=== PATIENT | male | born 1960 | race Caucasian/White ===

== ENCOUNTER 2018-04-03 09:35 | Emergency (ER) | payer OTHER ==
[~2018-04-03] VITALS: Ht 180.3 cm; Wt 83.9 kg
[~2018-04-03 09:35] MED LIST: CIPRO500 MG PO; ZYVOX600 MG PO
[2018-04-03] MEDS ORDERED: KETOROLAC TROMETHAMINE 60 MG/2 ML VIAL IM ONE (10:15)
--- NOTE | 2018-04-03 12:36 | Diagnostic Imaging Report ---
RIGHT SHOULDER X-RAY - 2 VIEWS HISTORY: \S\pain \[id number] \[id number] COMPARISON: Chest radiograph 04/26/2017 and 04/22/2017 FINDINGS: Bones: No acute displaced fracture. Indentation of the superolateral aspect of the right humeral head with adjacent soft tissue calcification. Well-corticated 6 mm bone fragment within the glenohumeral joint is unchanged since 04/26/2017. Osseous alignment is within normal limits. Joints: Mild degenerative changes of the right glenohumeral and acromioclavicular joints. Soft tissues: The soft tissues appear unremarkable. IMPRESSION: No acute radiographic abnormality. 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 Signed by: Dr. Alina Toney M.D. on 04/03/2018 12:33 PM
[2018-04-03 13:59] VITALS: BP 149/98
== END 2018-04-03 14:02 | disposition home or self-care (01) ==
LOC: ER 09:35
DX: M25.511 Pain in right shoulder (principal); Z86.14 Personal history of Methicillin resistant Staphylococcus aureus infection
CPT/HCPCS: 73030; 99283; J1885